=== PATIENT | male | born 1955 | race Caucasian/White ===

== ENCOUNTER 2018-01-19 11:00 | Outpatient (RCR) | payer OTHER ==
[~2018-01-19 11:00] MED LIST: BUPROPION HCL150 MG PO; DOXYCYCLINE HYC50 MG PO; PRAVASTATIN SOD20 MG PO
== END 2018-01-28 ==
LOC: PT 11:00
PROVIDERS: ATTEND Neurological Surgery
DX: M50.120 Mid-cervical disc disorder, unspecified level (principal); M54.12 Radiculopathy, cervical region; M62.81 Muscle weakness (generalized)